=== PATIENT | female | born 2000 | race Caucasian/White ===

== ENCOUNTER 2024-02-12 09:04 | Outpatient (CLI) | payer OTHER, SELFPAY ==
--- NOTE | 2024-02-12 09:15 | MR_ITS ---
[facility] [address] [facility] [address] Phone:?[phone] Fax:?[phone] Referring Physician Information: rEis Guzman M.D. [address] [facility] [address] Phone:?[phone] Fax:?[phone] Patient:Phillip Foley D.O.B:?2000 Sex:?Female Phone:?[phone] [facility] MRN:?[id number] Exam Date:?02/12/2024 EXAM: MRI of the RIGHT KNEE, without contrast CLINICAL HISTORY: Sprain of anterior cruciate ligament. Concern for anterior cruciate ligament tear. Right knee injury. COMPARISONS: None available. TECHNICAL: MR sequences of the right knee: sagittals: PD, PDFS coronals: PD, T2FS axials: PD, PDFS CONTRAST: None SEDATION: None FINDINGS: Bones: There is impaction fracture of the proximal posterolateral tibia. There is bone marrow contusion of the lateral femoral condyle at the sulcus terminalis. Patellofemoral joint: Cartilage: Intact. Retinacula: The medial and lateral retinacula are intact. Fat pads: The infrapatellar, quadriceps, and prefemoral fat pads are unremarkable. Knee joint: Effusion: Moderate right knee joint effusion. Popliteal cyst: None. Intra-articular bodies: None. Posteromedial corner: The semimembranosus and pes anserine tendons are intact. Medial compartment: Medial meniscus: Intact. Cartilage: Intact. Lateral compartment: Lateral meniscus: Intact. There is tear of the superior popliteomeniscal fascicle. The anteroinferior and posteroinferior popliteomeniscal fascicles are intact. Cartilage: Intact. Ligaments: Anterior cruciate ligament: Complete tear. Posterior cruciate ligament: Intact. Medial collateral ligament: Intact. Posterior oblique ligament: Intact. Fibular collateral ligament: Intact. Posterolateral corner: The distal biceps femoris tendon, iliotibial band, popliteus tendon, popliteus muscle, popliteofibular ligament, and arcuate ligament are intact. Extensor mechanism: Patellar tendon: Intact. Quadriceps tendon: Intact. IMPRESSION: 1. Complete tear of the anterior cruciate ligament. Associated impaction fracture of the proximal posterolateral tibia and bone marrow contusion of the lateral femoral condyle at the sulcus terminalis. 2. Tear of the superior popliteomeniscal fascicle. 3. Moderate right knee joint effusion. 4. No meniscal tear, tendinous pathology, or chondral pathology of the right knee. RCB Electronically signed on 02/12/2024 2:16:00 PM by Nehemiah Machado M.D.
== END 2024-02-12 09:05 | disposition home or self-care (01) ==
LOC: MRI 09:04
PROVIDERS: Visit Provider Orthopaedic Surgery Sports Medicine
DX: S83.511A Sprain of anterior cruciate ligament of right knee, initial encounter (principal); M25.461 Effusion, right knee
CPT/HCPCS: 73721

== ENCOUNTER 2024-02-18 13:46 | Outpatient (RCR) | payer OTHER, SELFPAY | END 2024-03-24 07:48 | disposition home or self-care (01) | PROVIDERS: Visit Provider Orthopaedic Surgery Sports Medicine | DX: M23.611 Other spontaneous disruption of anterior cruciate ligament of right knee (principal); Z51.89 Encounter for other specified aftercare | CPT/HCPCS: 97110; 97161 ==

== ENCOUNTER 2024-08-17 13:30 | Outpatient (RCR) | payer OTHER, SELFPAY | END 2024-12-15 23:59 | disposition home or self-care (01) | DX: M25.561 Pain in right knee (principal); M62.81 Muscle weakness (generalized); Z51.89 Encounter for other specified aftercare ==

== ENCOUNTER 2024-10-12 13:15 | Outpatient (RCR) | payer OTHER, SELFPAY | END 2025-02-09 23:59 | disposition home or self-care (01) | PROVIDERS: Visit Provider Orthopaedic Surgery Sports Medicine | DX: M23.6 Other spontaneous disruption of ligament(s) of knee (principal); Z98.890 Other specified postprocedural states; Z51.89 Encounter for other specified aftercare | CPT/HCPCS: 97110; 97112; 97140; 97161; 97164 ==

== ENCOUNTER 2024-10-13 07:16 | Outpatient (REF) | payer OTHER, SELFPAY | END 2024-10-13 07:17 | disposition home or self-care (01) | LOC: LAB 07:16 | DX: Z52.3 Bone marrow donor (principal) | CPT/HCPCS: 36415; 99001 ==